=== PATIENT | male | born 1995 | race Caucasian/White ===

== ENCOUNTER 2020-07-01 01:00 | Observation (INO) | payer OTHER ==
[~2020-07-01] VITALS: Ht 170.2 cm; Wt 54.4 kg
[~2020-07-01 01:00] MED LIST: FLOMAX 0.4 MG0.4 MG PO; LODINE CAP 300300 MG PO; PERCOCET 5-3251 EACH PO; PREDNISONE20 MG PO; REGLAN 10 MG TA10 MG PO; ZOFRAN ODT 4 MG4 MG PO; ZOFRAN4 MG PO
[2020-07-01 01:59] LABS: HEMOGLOBIN 14.8 gm/dl (14.0-17.5); RED BLOOD COUNT 4.68 M/UL (4.20-5.50); WHITE BLOOD COUNT 8.7 K/UL (4.5-11.0)
[2020-07-01 02:18] LABS: BUN/CREATININE RATIO 7 (0-10)
[2020-07-01] MEDS ORDERED: HUMALOG100 UNIT/1 SQ (09:35)
[2020-07-02] MEDS ORDERED: LANTUS SOL100 UNIT/1 SQ (15:00)
[2020-07-02] MEDS ORDERED: HUMALOG 10100 UNITS/ SC (15:01)
[2020-07-19] MEDS ORDERED: HYDROCODON-ACE1 EAC6 PO (06:35)
[2020-07-19] MEDS ORDERED: IBU800 MG PO (06:35)
== END 2020-07-02 15:15 | disposition home or self-care (01) ==
LOC: ER1 01:00 → CDU 06:40 → M/S 06:40
PROVIDERS: Student in an Organized Health Care Education/Training Program; ADMIT Internal Medicine
DX: R56.9 Unspecified convulsions (principal); S42.254A Nondisplaced fracture of greater tuberosity of right humerus, initial encounter for closed fracture; S42.255A Nondisplaced fracture of greater tuberosity of left humerus, initial encounter for closed fracture; E87.6 Hypokalemia; F12.10 Cannabis abuse, uncomplicated; F11.10 Opioid abuse, uncomplicated; F17.290 Nicotine dependence, other tobacco product, uncomplicated; E11.9 Type 2 diabetes mellitus without complications; Z96.41 Presence of insulin pump (external) (internal); Z88.8 Allergy status to other drugs, medicaments and biological substances; Z79.4 Long term (current) use of insulin; Z20.822 Contact with and (suspected) exposure to COVID-19; W19.XXXA Unspecified fall, initial encounter
CPT/HCPCS: 36600; 70450; 70551; 71045; 73030; 80053; 80307; 81001; 82009; 82550; 82553; 82803; 82962; 83605; 83690; 83735; 83874; 84100; 84484; 85025; 93005; 95819; 96374; 96375; 96376; 99285; G0378; G0480; J1170; J1885; J7120; U0002

== ENCOUNTER → 2020-07-11 | Outpatient (CLI) | payer OTHER ==
[~2020-07-11] MED LIST changes: +HUMALOG 10100 UNITS/ SC; +HUMALOG100 UNIT/1 SQ; +HYDROCODON-ACE1 EAC6 PO; +IBU800 MG PO; +LANTUS SOL100 UNIT/1 SQ
== END ==
LOC: KOH-I 11:52
DX: S42.202A Unspecified fracture of upper end of left humerus, initial encounter for closed fracture (principal); S42.201A Unspecified fracture of upper end of right humerus, initial encounter for closed fracture
CPT/HCPCS: 73200

== ENCOUNTER → 2020-07-19 | Day surgery (SDC) | payer OTHER | END | disposition home or self-care (01) | LOC: OR 06:05 | DX: S42.292A Other displaced fracture of upper end of left humerus, initial encounter for closed fracture (principal); S42.201A Unspecified fracture of upper end of right humerus, initial encounter for closed fracture; R56.9 Unspecified convulsions; F12.90 Cannabis use, unspecified, uncomplicated; E10.9 Type 1 diabetes mellitus without complications; Z79.4 Long term (current) use of insulin; Z88.8 Allergy status to other drugs, medicaments and biological substances; X58.XXXA Exposure to other specified factors, initial encounter | CPT/HCPCS: 82962; C1713; J0690; J1100; J2001; J2250; J2405; J2704; J3010; J7120 ==

== ENCOUNTER 2020-09-09 03:13 | Observation (INO) | payer OTHER ==
[~2020-09-09] VITALS: Ht 172.7 cm; Wt 47.6 kg
[2020-09-09 03:56] LABS: HEMOGLOBIN 15.1 gm/dl (14.0-17.5); RED BLOOD COUNT 5.13 M/UL (4.20-5.50); WHITE BLOOD COUNT 4.6 K/UL (4.5-11.0)
[2020-09-09 04:08] LABS: BUN/CREATININE RATIO 14 (0-10)
[2020-09-09 18:21] LABS: BUN/CREATININE RATIO 9 (0-10)
[2020-09-10 03:54] LABS: WHITE BLOOD COUNT 5.3 K/UL (4.5-11.0)
[2020-09-10 03:57] LABS: HEMOGLOBIN 11.4 gm/dl (14.0-17.5); RED BLOOD COUNT 3.78 M/UL (4.20-5.50)
[2020-09-10 04:33] LABS: BUN/CREATININE RATIO 5 (0-10)
[2020-09-11 07:26] LABS: HEMOGLOBIN 12.8 gm/dl (14.0-17.5)
[2020-09-11 07:30] LABS: RED BLOOD COUNT 4.43 M/UL (4.20-5.50)
--- NOTE | 2020-09-11 07:38 | NUR ---
NOTIFIED RT OF ORDER FOR STAT EKG. ANG RT SAID SHE WOULD BE HERE ATA.
[2020-09-11 07:39] LABS: BUN/CREATININE RATIO 6 (0-10)
[2020-09-11] MEDS ORDERED: KEPPRA 500 MG500 MG PO (18:22)
[2020-09-12 11:14] LABS: C-PEPTIDE, SERUM <0.1 ng/mL (1.1-4.4); INSULIN 3.9 uIU/mL (2.6-24.9)
== END 2020-09-11 19:35 | disposition home or self-care (01) ==
LOC: ER1 03:13 → MED SURG 4 08:27 → CDU 08:27 → MED SURG 4 19:20
PROVIDERS: Family Medicine; Internal Medicine; Physician Assistant; ADMIT Internal Medicine Infectious Disease
DX: G40.409 Other generalized epilepsy and epileptic syndromes, not intractable, without status epilepticus (principal); R00.1 Bradycardia, unspecified; U07.1 COVID-19; E87.6 Hypokalemia; F12.10 Cannabis abuse, uncomplicated; E10.40 Type 1 diabetes mellitus with diabetic neuropathy, unspecified; R94.31 Abnormal electrocardiogram [ECG] [EKG]; F17.290 Nicotine dependence, other tobacco product, uncomplicated; Z88.8 Allergy status to other drugs, medicaments and biological substances
CPT/HCPCS: ECHO; 36415; 71045; 72125; 72128; 80048; 80053; 80307; 81001; 82550; 82553; 82728; 82962; 83036; 83615; 83735; 84100; 84439; 84443; 84484; 84681; 85025; 86140; 93005; 93270; 93306; 96372; 96374; 96375; 96376; 99285; G0378; J1650; J1953; J2405; U0002